=== PATIENT | male | born 1985 | race Caucasian/White ===

== ENCOUNTER 2022-03-15 08:20 | Inpatient (IN) | payer MEDICAID ==
[~2022-03-15] VITALS: Ht 193 cm; Wt 76.4 kg
[~2022-03-15 08:20] MED LIST: ALBU18HF2 INH
[2022-03-15] MEDS ORDERED: acetaminophen 325mg tablet PO PRN (10:35)
[2022-03-15] MEDS ORDERED: mag hydrox/Alum hydrox/simeth 30ml oral suspension PO PRN (10:35)
[2022-03-15] MEDS ORDERED: loperamide 2mg capsule PO PRN (10:35)
[2022-03-15] MEDS ORDERED: magnesium hydroxide 30ml (MOM) UD suspension PO PRN (10:35)
[2022-03-15] MEDS ORDERED: NICOTINE POLACRILEX 2 MG LOZENGE BC PRN (10:35)
[2022-03-15] MEDS ORDERED: ENOX40SY7 SUBCUT (11:31)
[2022-03-15] MEDS ORDERED: LORA-269 PO (11:31)
[2022-03-15] MEDS ORDERED: SENN-294 PO (11:31)
[2022-03-15] MEDS ORDERED: QUET25TA PO (11:31)
[2022-03-15] MEDS ORDERED: TRAZ-251 PO (11:31)
[2022-03-15] MEDS: nicotine 14mg patch - 24hr TD SCH (12:45)
[2022-03-15] MEDS ORDERED: LORazepam 1 MG tablet PO PRN (12:50)
[2022-03-15] MEDS ORDERED: QUEtiapine 25mg tablet PO PRN (12:55)
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
[2022-03-15] MEDS: acetaminophen 325mg tablet PO PRN (18:12)
[2022-03-15 20:00] VITALS: BP 125/84
[2022-03-15] MEDS: traZODone 50mg tablet PO PRN (20:51)
[2022-03-15] MEDS: docusate sod 100mg capsule PO SCH (20:51)
[2022-03-15] MEDS: LORazepam 0.5 MG tablet PO PRN (20:51)
[2022-03-15] MEDS: QUEtiapine 25mg tablet PO SCH (20:54)
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
[2022-03-16 08:00] VITALS: BP 115/70
[2022-03-16] MEDS ORDERED: nicotine 21mg patch - 24 hr TD SCH (08:00)
[2022-03-16] MEDS: docusate sod 100mg capsule PO SCH ×2 (08:05→19:57)
[2022-03-16] MEDS: nicotine 14mg patch - 24hr TD SCH (08:06)
[2022-03-16 08:19] LABS: CHOL/HDL RATIO 3.1 (0.00-4.99); CHOLESTEROL 153 MG/DL (0-200); HDL CHOLESTEROL 49 MG/DL (35-60); LDL CHOLESTEROL 84 MG/DL (50-100); TRIGLYCERIDES 66 MG/DL (20-135)
[2022-03-16 09:11] LABS: HEMOGLOBIN A1C 5.4 % (4.5-6.2)
--- NOTE | 2022-03-16 10:34 | NUR ---
Cleansed wound left lateral chest from D/c'd chest tube with normal saline, took photo, applied clean dressing.
--- NOTE | 2022-03-16 14:28 | NUR ---
TF consult: Confirmed with RN that consult was intended to be a malnutrition consult as pt reports 2-13 lb wt loss with decreased appetite. Per EMR pt was not eating or sleeping leading up to suicidal attempt. Most recent wt hx in EMR is from 2017 and is an outlier from current and prior scaled wts. Pt on a regular diet and eating well, documented with average 83% PO intake meeting estimated nutrient needs. Pt with no documented decrease in muscle strength or edema. Pt currently lacks a minimum of two criteria for malnutrition. Will continue to follow. Addendum: 03/16/22 at [address] Amended: Links added.
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
--- NOTE | 2022-03-16 17:19 | NUR ---
Attempted to return James's father's call multiple times and it was a poor connection. Ph# [phone] DEBBIE Herrera
[2022-03-16 19:45] VITALS: BP 120/78
[2022-03-16] MEDS: QUEtiapine 25mg tablet PO SCH (19:56)
[2022-03-17] MEDS: LORazepam 0.5 MG tablet PO PRN ×2 (02:07→20:11)
[2022-03-17] MEDS: acetaminophen 325mg tablet PO PRN ×2 (02:07→20:11)
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
[2022-03-17 08:17] VITALS: BP 125/86
[2022-03-17] MEDS: docusate sod 100mg capsule PO SCH ×2 (08:24→20:03)
[2022-03-17] MEDS: buPROPion SR 150mg tablet PO SCH (08:24)
[2022-03-17] MEDS: nicotine 14mg patch - 24hr TD SCH (08:28)
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
[2022-03-17 19:00] VITALS: BP 133/83
[2022-03-17] MEDS: QUEtiapine 25mg tablet PO SCH (20:09)
[2022-03-17] MEDS: traZODone 50mg tablet PO PRN (20:11)
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
[2022-03-18 08:00] VITALS: BP 110/77
[2022-03-18] MEDS: docusate sod 100mg capsule PO SCH (08:24)
[2022-03-18] MEDS: buPROPion SR 150mg tablet PO SCH (08:24)
[2022-03-18] MEDS: nicotine 14mg patch - 24hr TD SCH (08:27)
[2022-03-18] MEDS ORDERED: NALT50TA PO (09:20)
[2022-03-18] MEDS ORDERED: naltrexone 50mg tablet PO ONE (09:20)
[2022-03-18] MEDS ORDERED: TRAZ-251 PO (09:20)
[2022-03-18] MEDS ORDERED: BUPR-72 PO (09:20)
--- NOTE | 2022-03-18 10:37 | NUR ---
DISCHARGE NOTE: Pt was discharged home with dad at 1010. He is moving to [place] with his parents,pt was given his first dose of naltrexone prior to discharge. All belongings returned.
[2022-03-19] MEDS ORDERED: naltrexone 50mg tablet PO SCH (08:00)
== END 2022-03-18 10:10 | disposition home or self-care (01) | DRG 754 ==
LOC: ADULT MH 08:20
PROVIDERS: ADMIT Psychiatry & Neurology Psychiatry; ATTEND Psychiatry & Neurology Psychiatry
DX: F32.9 Major depressive disorder, single episode, unspecified (principal); S11.81XA Laceration without foreign body of other specified part of neck, initial encounter; F17.210 Nicotine dependence, cigarettes, uncomplicated; F20.9 Schizophrenia, unspecified; J45.909 Unspecified asthma, uncomplicated; T43.211A Poisoning by selective serotonin and norepinephrine reuptake inhibitors, accidental (unintentional), initial encounter; T43.291A Poisoning by other antidepressants, accidental (unintentional), initial encounter; T39.311A Poisoning by propionic acid derivatives, accidental (unintentional), initial encounter; S31.811A Laceration without foreign body of right buttock, initial encounter; Z91.51 Personal history of suicidal behavior; Z81.8 Family history of other mental and behavioral disorders; Z79.899 Other long term (current) drug therapy; Z56.0 Unemployment, unspecified; W26.8XXA Contact with other sharp object(s), not elsewhere classified, initial encounter; Y93.89 Activity, other specified; Y92.89 Other specified places as the place of occurrence of the external cause; Y99.8 Other external cause status
CPT/HCPCS: 36415; 80061; 83036; 87081; A4649; A6212; A6449